=== PATIENT | female | born 2000 | race Caucasian/White ===

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

== ENCOUNTER → 2020-02-24 | Outpatient (CLI) | payer SELFPAY ==
[~2020-02-24] MED LIST changes: +ALL10TAB2 PO; +AZIT500T5 PO
== END ==
LOC: M LABSMTC 15:02
PROVIDERS: ATTEND Pediatrics
DX: Z20.828 Contact with and (suspected) exposure to other viral communicable diseases (principal)

== ENCOUNTER → 2020-04-09 | Outpatient (CLI) | payer OTHER ==
--- NOTE | 2020-04-10 02:40 | REPPI ---
INDICATION: M54.31 SCIATICA OF RIGHT SIDE COMPARISON: None. TECHNIQUE: AP, lateral, bilateral oblique, and coned-down views of the lumbar spine. FINDINGS: Alignment and lordosis maintained. Vertebral bodies are intact. Disc spaces are relatively normal/age-appropriate. No acute fracture/compression injury or subluxation. No obvious spondylolysis or spondylolisthesis.. IMPRESSION: Normal Lumbosacral Spine series. <Electronically signed by Case Bee > 04/10/20 [id number]
== END ==
LOC: M PLAIMG 11:56
PROVIDERS: ATTEND Physician Assistant Medical
DX: M54.31 Sciatica, right side (principal)

== ENCOUNTER → 2020-04-09 | Outpatient (REF) | payer OTHER | LOC: M SFHCPLAZ 11:56 | PROVIDERS: ATTEND Physician Assistant Medical | DX: R53.83 Other fatigue (principal) ==

== ENCOUNTER → 2022-05-18 | Outpatient (REF) | payer OTHER | LOC: M LAB REF 18:35 | PROVIDERS: ATTEND Student in an Organized Health Care Education/Training Program | DX: J02.9 Acute pharyngitis, unspecified (principal) ==

== ENCOUNTER → 2024-11-06 | Outpatient (RCR) | LOC: M EMPSKH 10-30 11:21 | PROVIDERS: ATTEND Family Medicine | DX: Z00.00 Encounter for general adult medical examination without abnormal findings (principal); U07.1 COVID-19 ==